=== PATIENT | female | born 1975 | race Caucasian/White ===

== ENCOUNTER → 2017-12-25 | Day surgery (SDC) | payer BC, OTHER ==
--- NOTE | 2017-12-27 11:20 | PATH ---
Surgical Pathology Report Patient Name: ISRAEL NIELSON [facility]. Rec. #: [id number] /Age/Gender: 1975 (Age: 42) / F Account: [id number] Location: [facility] Taken: 12/25/2017 Received: 12/25/2017 Reported: 12/26/2017 Physicians: Arlene Givens M.D. Specimen(s) Received LEFT BREAST CORE BIOPSY Clinical History Nonpalpable lesion Ultrasound findings: Probably benign, 0.82 cm Final Diagnosis AXILLARY TAIL/BREAST UPPER OUTER QUADRANT, LEFT, 1:00, 8-10 CMFN, ULTRASOUND GUIDED CORE BIOPSY: FIBROADENOMA. Comment: Findings discussed with Dr. Givens. Electronically Signed Neelam Colin M.D. Gross Description Received in formalin labeled "left 1:00 axilla, 8-10cmfn," are 5 orellana-yellow, cylindrical portions of fibroadipose tissue ranging from 1.0-1.5 cm in length and averaging 0.1 cm in diameter. The specimens are submitted in toto in one cassette. Total formalin fixation time: Approximately 8 hours DL/12/25/2017 saudi/12/25/2017
== END | disposition home or self-care (01) ==
LOC: JRADUS-SUR 12:19
PROVIDERS: ATTEND Physician Assistant
PROC: 0HBU3ZX Excision of Left Breast, Percutaneous Approach, Diagnostic (ICD-10-PCS; principal; 2017-12-25)
DX: D24.2 Benign neoplasm of left breast (principal)
CPT/HCPCS: 19083; 87899; 88305-TC; A4648

== ENCOUNTER 2020-03-30 04:38 | Inpatient (IN) | payer BC, OTHER ==
[2020-03-27 09:33] VITALS: BMI 25.8
[2020-03-30 09:22] LABS: PH,URINE 6.5 (5.0-8.0); URINE APPEARANCE CLEAR; URINE BILIRUBIN NEGATIVE (NEGATIVE); URINE COLOR YELLOW; URINE GLUCOSE (UA) NEGATIVE (NEGATIVE); URINE KETONE NEGATIVE (NEGATIVE); URINE LEUK ESTERASE NEGATIVE (NEGATIVE); URINE NITRITE NEGATIVE (NEGATIVE); URINE PROTEIN NEGATIVE (NEGATIVE)
[2020-03-30] MEDS ORDERED: SCOPOLAMINE HYDROBROMIDE 1 PATCH PATCH.TD72 ONE (09:53)
[2020-03-30] MEDS ORDERED: ROPIVACAINE HCL 0.5% 30ML VIAL ONE (09:54)
[2020-03-30] MEDS ORDERED: BACITRACIN 15 GM TUBE TOPICAL OINTMENT ONE (09:55)
[2020-03-30] MEDS ORDERED: MIDAZOLAM HCL 2 MG/2 ML SINGLE DOSE VIAL ONE ×3 (09:56→10:32)
[2020-03-30] MEDS ORDERED: ROCURONIUM BROMIDE 50 MG/5 ML SYRINGE ONE (10:31)
[2020-03-30] MEDS ORDERED: PROPOFOL 20 ML ONE (10:32)
--- NOTE | 2020-03-30 10:37 | HP ---
Satellite PMH - Chief Complaint Chief Complaint: Leiomyomatous uterus. Ovarian CYst History of Present Illness: 44 yo G 0 with leomyomatous uterus for myomectomy and with ovarian cyst for ovarian cystectomy History Source: Patient, Medical Record Limitations to Obtaining History: No Limitations - Past Medical History Allergies/Adverse Reactions: Allergies Allergy/AdvReac Type Severity Reaction Status Date / Time latex Allergy Intermediate Rash Verified 03/27/20 09:24 Sulfa (Sulfonamide Allergy Intermediate Itching Verified 03/27/20 09:24 Antibiotics) ...LMP: 03/18/20 ...: No ...: 0 - Current Medications Current Medications: Home Medications Medication Instructions Recorded Sertraline HCl [Zoloft] 75 mg PO DAILY 03/27/20 Satellite Physical Exam - Physical Examination Vital Signs: Vital Signs Period Temp Pulse Resp BP Sys/Huffman Pulse Ox Last 24 Hr 98.2 F 71 16 109/69 95 General Appearance: Well Nourished, Well Developed Lung: Clear to auscultation Heart: Regular rate & rhythm Breasts: Soft, Non-Tender Abdomen: Soft, No tenderness Extremities: No edema Pelvic Exam: Within normal limits External Genitalia, Within normal limits Vagina, Within normal limits Cervix, Within normal limits [place], Other Uterus (uterus 12 cm) Neurological: Intact, Alert, Oriented Satellite Impression/Plan - Impression/Plan Impression: leiomyomatous uterus. Ovarian Cyst Operative Procedure: Abdominal myomectomy. ovarian cystectomy Date to be Performed: 03/30/20
[2020-03-30] MEDS ORDERED: VASOPRESSIN 20 UNITS/ML VIAL IV ONE (10:40)
[2020-03-30] MEDS ORDERED: ceFAZolin SODIUM 1 GM VIAL IVPB ONE (11:10)
[2020-03-30] MEDS ORDERED: EPHEDRINE SULFATE/0.9% NACL/PF 50 MG/10 ML SYRINGE NR ONE (11:40)
[2020-03-30] MEDS ORDERED: NEOSTIGMINE METHYLSULFATE 0.5 MG/ML - 10 ML MDV ONE (12:23)
[2020-03-30] MEDS ORDERED: PHENYLEPHRINE HCL 10 MG/1 ML SINGLE DOSE VIAL ONE (12:23)
[2020-03-30] MEDS ORDERED: HYDROmorphone HCL CARPU-JECT 2 MG/1 ML DISP.SYRIN IVPUSH ONE (14:22)
[2020-03-30] MEDS ORDERED: SIMETHICONE 80 MG TAB.CHEW (FP) PO PRN (14:24)
[2020-03-30] MEDS ORDERED: oxyCODONE HCL 5 MG TABLET PO PRN ×2 (14:24)
[2020-03-30] MEDS ORDERED: BISACODYL 5 MG TABLET.DR (FP) PO PRN (14:24)
[2020-03-30] MEDS ORDERED: DOCUSATE SODIUM 100 MG CAPSULE (FP) PO PRN (14:24)
[2020-03-30] MEDS ORDERED: ONDANSETRON 4 MG/2 ML VIAL IVPUSH PRN ×2 (14:24→14:33)
[2020-03-30] MEDS ORDERED: HYDROmorphone HCl 2 MG/ML VIAL ONE (14:24)
[2020-03-30] MEDS ORDERED: LACTATED RINGERS SOLUTION 1,000 ML/1,000 ML INFUS.BAG IV SCH (14:30)
--- NOTE | 2020-03-30 14:30 | OP ---
Operative Note - Note: Operative Date: 03/30/20 Pre-Operative Diagnosis: fibroids/leiomyoma of the uterus Operation: abdominal myomectomy Surgeon: Paige Neumann Improvement Engineer: Manju Staples Anesthesiologist/VACUUM FILTER OPERATOR: Mehrdad Franco Anesthesia: General Specimens Removed: fibroids Estimated Blood Loss (mls): 100 Drains, Volume Out (mls): 100 (stewart) Fluid Volume Replaced (mls): 1,300 Operative Report Dictated: Yes
--- NOTE | 2020-03-30 14:32 | SURG ---
Surgery Bellmaker Note Bellmaker: Manju Staples PA-C Date of Service: 03/30/20 Diagnosis: fibroids/leiomyoma of the uterus Procedure: abdominal myomectomy I was present for the entirety of the operative procedure. For further detail, please refer to operative report. Visit type - Case Type Case Type: Scheduled - Emergency Emergency Visit: Yes Care time: The patient presented to the Emergency Department on the above date and was hospitalized for further evaluation of their emergent condition. - New patient This patient is new to me today: Yes Date on this admission: 03/30/20
[2020-03-30] MEDS ORDERED: ACETAMINOPHEN 1000 MG/100 ML VIAL (NON FORMULARY) IVPB ONE (14:33)
[2020-03-30] MEDS ORDERED: LACTATED RINGERS SOLUTION 1,000 ML IV SCH (14:45)
[2020-03-30] MEDS: IBUPROFEN 800 MG/8 ML IJ IVPB PRN (18:43)
[2020-03-30 19:02] LABS: HEMATOCRIT 37.1 % (32.4-45.2); HEMOGLOBIN 12.2 GM/dL (10.7-15.3); MCH 29.3 pg (25.7-33.7); MCHC 32.9 g/dl (32.0-36.0); MEAN CELL VOLUME 88.9 fl (80-96); MEAN PLT VOLUME 9.3 fl (7.5-11.1); PLATELET COUNT 262 K/MM3 (134-434); RBC 4.17 M/mm3 (3.60-5.2); RDW 13.2 % (11.6-15.6)
[2020-03-30 19:20] LABS: BLOOD UREA NITROGEN 9.5 mg/dL (7-18); CALCIUM 8.2 mg/dL (8.5-10.1); CREATININE 0.8 mg/dL (0.55-1.3); POTASSIUM 4.6 mmol/L (3.5-5.1)
[2020-03-30] MEDS: CEFAZOLIN 1 GM/D5W 1 GM/50 ML BAG IVPB SCH (20:02)
[2020-03-30] MEDS: ACETAMINOPHEN 1000 MG/100 ML VIAL (NON FORMULARY) IVPB SCH (21:00)
[2020-03-31] MEDS: ACETAMINOPHEN 1000 MG/100 ML VIAL (NON FORMULARY) IVPB SCH ×4 (00:56→15:15)
[2020-03-31] MEDS: CEFAZOLIN 1 GM/D5W 1 GM/50 ML BAG IVPB SCH ×2 (03:49→12:22)
--- NOTE | 2020-03-31 07:48 | PN ---
Progress Note (short form) - Note Progress Note: Surgery POD #1 open abdominal myomectomy. Patient seen and examined on AM rounds. Her pain is controlled and he is tolerating her diet and denies any fevers, CP, SOB, chills, N/V/D. She has not been OOB and her stewart is still in Vital Signs Temp 98.8 F 03/31/20 06:51 Pulse 68 03/31/20 06:51 Resp 20 03/31/20 06:51 BP 100/57 L 03/31/20 06:51 Pulse Ox 97 03/31/20 00:38 Intake & Output 03/30/20 03/30/20 03/31/20 11:59 23:59 11:59 Intake Total 7414 707 3428 Output Total 396 217 0220 Balance 1000 -200 -450 Intake: IV 1200 600 850 Lactated Ringers Solution 850 1,000 ml @ 75 mls/hr IV ASDIR JOHN Rx#:[id number] IVPB 300 Output: Urine 636 642 1348 Stewart 600 1600 Estimated Blood Loss 100 Other: Voiding Method Indwelling Catheter Indwelling Catheter Bowel Movement No CBC, BMP 03/31/20 07:40 03/31/20 07:40 PE: A&Ox3, NAD Unlabored resp on RA ABD: soft, NT, ND, incision c/d/i with steris intact and surrounding tissue intact with no tracking erythema, edema or evidence of collection or active d/c B/L compartments soft, supple and non-tender with +2 DP pulses Problem List - Problems (1) Status post myomectomy Assessment/Plan: POD #1 abdominal myomectomy doing well. -Advance diet as tolerated -d/c stewart -oob as tolerated -encourage IS -pain control -DVT prophylaxis -d/c planning for home tomorrow Evaluation and plan discussed with Dr Neumann Code(s): Z98.890 - OTHER SPECIFIED POSTPROCEDURAL STATES
[2020-03-31 08:01] LABS: HEMATOCRIT 32.6 % (32.4-45.2); HEMOGLOBIN 10.8 GM/dL (10.7-15.3); MCH 29.5 pg (25.7-33.7); MCHC 33.3 g/dl (32.0-36.0); MEAN CELL VOLUME 88.7 fl (80-96); MEAN PLT VOLUME 8.8 fl (7.5-11.1); PLATELET COUNT 230 K/MM3 (134-434); RBC 3.68 M/mm3 (3.60-5.2); RDW 13.1 % (11.6-15.6); WHITE BLOOD COUNT 9.4 K/mm3 (4.0-10.0)
[2020-03-31 08:31] LABS: BLOOD UREA NITROGEN 8.8 mg/dL (7-18); CREATININE 0.8 mg/dL (0.55-1.3)
[2020-03-31] MEDS: SERTRALINE HCL 25 MG TABLET (FP) PO SCH (09:25)
[2020-03-31] MEDS: ENOXAPARIN NA (PORCINE) 40 MG/0.4 ML DISP.SYRIN SQ SCH (09:25)
[2020-03-31] MEDS: IBUPROFEN 800 MG/8 ML IJ IVPB PRN ×2 (09:47→20:19)
[2020-04-01] MEDS: ACETAMINOPHEN 325 MG TABLET (FP) PO PRN ×2 (06:15→11:02)
--- NOTE | 2020-04-01 07:45 | DS ---
Physical Examination Vital Signs: Vital Signs Temperature 98.7 F 03/31/20 22:00 Pulse Rate 65 03/31/20 22:00 Respiratory Rate 18 03/31/20 22:00 Blood Pressure 108/53 L 03/31/20 22:00 O2 Sat by Pulse Oximetry (%) 96 03/31/20 22:00 Constitutional: Yes: No Distress Eyes: Yes: Conjunctiva Clear Neck: Yes: Supple, Trachea Midline Cardiovascular: Yes: Regular Rate and Rhythm Respiratory: Yes: Regular Gastrointestinal: Yes: Normal Bowel Sounds Musculoskeletal: Yes: WNL Extremities: Yes: WNL Wound/Incision: Yes: Well Approximated Neurological: Yes: Alert, Oriented ...Motor Strength: WNL Psychiatric: Yes: Alert, Oriented Labs: CBC, BMP 03/31/20 07:40 03/31/20 07:40 Discharge Summary Problems reviewed: Yes Reason For Visit: FIBROIDS/LEIOMYOMA OF UTERUS Current Active Problems Status post myomectomy (Acute) Procedures: Principal: Abdominal myomectomy Hospital Course: Routine post op care Health Concerns: None Plan of Treatment: Ambulation Analgesia as needed F/U with MD in 1 week Goals: Resume regular activities in 4 weeks Condition: Good - Instructions Diet, Activity, Other Instructions: Dr. Paige Neumann Sound Engineering Technician discharge instructions Physical activity Resume your normal everyday activity as tolerated no heavy lifting or exercise until seen by your surgeon. You may walk unlimited robbie of and climb stairs. You may resume driving the car when you feel safe and comfortable behind the wheel. No sexual activity as instructed by Dr. Neumann. Wound care If you have a bandage, leave it on, and keep dry for 48-72 hours. After that time discard the outer bandage. If they are tapes on the skin under the out of bandage leave them in place. They will peel off in the next 7 to 10 days. Do Not Peel them off. You may shower the day after surgery. If there are tapes present on the skin, you may shower over them. Diet There are no dietary restrictions. Eat healthy, high-fiber foods. Drink 6 to 8 glasses of liquid each day. This will assist in keeping your bowels are regular. Pain management You may take Tylenol or acetaminophen or Ibuprofen (for example, Motrin, Advil etc.) from my pain prescription medication is ordered should be taken as prescribed for moderate to severe pain. Call Dr. Neumann for any of the following: Severe pain not relieved by medication Fever of 101 or higher Excessive bleeding or drainage on dressing Inability to urinate ISTOP [id number] Call the office at [phone] for an appointment in seven days. Disposition: HOME - Home Medications Comprehensive Discharge Medication List: Ambulatory Orders Sertraline HCl [Zoloft] 75 mg PO DAILY 03/27/20
[2020-04-01 09:32] VITALS: BP 98/57; PULSE 59; TEMP 98.2
[2020-04-01] MEDS: ENOXAPARIN NA (PORCINE) 40 MG/0.4 ML DISP.SYRIN SQ SCH (11:02)
[2020-04-01] MEDS: SERTRALINE HCL 25 MG TABLET (FP) PO SCH (11:08)
--- NOTE | 2020-04-02 16:20 | PATH ---
Surgical Pathology Report Patient Name: ISRAEL NIELSON [facility]. Rec. #: [id number] /Age/Gender: 1975 (Age: 44) / F Account: [id number] Location: [facility] OBS/STEEL SASH ERECTOR Taken: 03/30/2020 Received: 03/30/2020 Reported: 04/02/2020 Physicians: Paige Neumann M.D. Specimen(s) Received A: UTERINE FIBROIDS B: LEFT CYSTECTOMY Clinical History Fibroids, leiomyoma of uterus Final Diagnosis A. uterine fibroidS, abdominal myomectomy: Leiomyomata (weight: 396 GRAMS). B. ovarian cyst, left, cystectomy: Hemorrhagic corpus luteum cyst. Electronically Signed Jessica Lugo M.D. Gross Description A. Received in formalin labeled "uterine fibroids," are 6 orellana, rubbery nodules ranging from 1.6-8.5 cm in greatest dimension weighing 396 grams. Sectioning reveals orellana, firm to rubbery parenchyma with whorled architecture. No areas of hemorrhage or necrosis are identified. File Keeper sections are submitted in 8 cassettes as follows: 1-3-smaller fibroids; 4-5-second largest fibroid; 6-8-largest fibroid. B. Received in formalin labeled "left cystectomy," is a 1.7 x 1.2 x 0.2 cm aggregate of orellana-brown tissue fragments, consistent with a disrupted hemorrhagic cyst. The specimens are submitted in toto in one cassette. /03/31/2020 saudi/03/31/2020
--- NOTE | 2020-04-08 16:22 | OP ---
DATE OF OPERATION: 03/30/2020 PREOPERATIVE DIAGNOSIS: Leiomyomatous uterus. OPERATION: Abdominal myomectomy. POSTOPERATIVE DIAGNOSIS: Leiomyomatous uterus. SURGEON: Faviola Neumann MD ALGEBRA TUTOR: CHARITO Coronado DESCRIPTION OF PROCEDURE: Patient was taken to the operating room, placed in supine position, prepped and draped in the usual sterile fashion. Timeout was performed in accordance with hospital regulation. Pfannenstiel skin incision was made with the scalpel. Cautery was then used to go through the layers of the abdominal wall to the level of the fascia. Fascia was cut in the midline, and cautery was then used to open the fascia in smiling fashion. Skyler was then used to bluntly and sharply dissect the rectus muscle and its fascia. Muscle was split in the midline. Peritoneal cavity was then entered and carried upward and downward. Uterus was then exteriorized. A leiomyomatous uterus was noted, approximately 12 weeks in size. A tourniquet was placed in the clear space of the broad ligament. Pitressin was infiltrated into multiple areas of the myoma. Multiple myomas were palpated, and cautery was then used to enter the serosa and myomas were enucleated out. Endometrial cavity was not entered. Anterior aspect of the uterus was also palpated and found to have myomas, and cautery was then used to make incision and myomas were then enucleated out. All incisions were closed in continuous locking stitch of 0 Vicryl suture, and then serosa of the uterus closed with 2-0 V-Loc suture. Hemostasis was then achieved. Interceed was then placed. Uterus was then interiorized, abdominal cavity cleaned with clean lap pads. Estimated blood loss about 100 mL. Abdominal sweep done. Peritoneal cavity closed in continuous 0 Vicryl suture. Fascia was then closed using 0 Vicryl suture, 2 parts. Skin was then closed using 3-0 Vicryl in subcuticular fashion. Wound was washed and dressed. Patient had tolerated the procedure well, was taken to recovery room in stable condition. FAVIOLA NEUMANN M.D. [id number]
== END 2020-04-01 11:30 | disposition home or self-care (01) | DRG 743 ==
LOC: JASUSAT 04:38 → EDSTATUS 10:30 → J2C 14:24 → J3W 15:46
PROVIDERS: ADMIT Obstetrics & Gynecology; ATTEND Obstetrics & Gynecology
PROC: 0UB10ZZ Excision of Left Ovary, Open Approach (ICD-10-PCS; 2020-03-30)
PROC: 0UB90ZZ Excision of Uterus, Open Approach (ICD-10-PCS; principal; 2020-03-30 10:00)
DX: D25.9 Leiomyoma of uterus, unspecified (principal); N83.12 Corpus luteum cyst of left ovary; Z88.2 Allergy status to sulfonamides; Z91.040 Latex allergy status
CPT/HCPCS: 36415; 80048; 81003; 84703; 85027; 86780; 86850; 86900; 86901; 88305-TC; 88307-TC; 94010; 94760; J0131

== ENCOUNTER 2021-01-28 04:40 | Day surgery (SDC) | payer BC, OTHER ==
[2021-01-27 13:10] VITALS: BMI 25.8
[2021-01-28] MEDS ORDERED: PROPOFOL 20 ML ONE ×2 (12:41→12:54)
[2021-01-28] MEDS ORDERED: MIDAZOLAM HCL 2 MG/2 ML SINGLE DOSE VIAL ONE (12:41)
[2021-01-28] MEDS ORDERED: DEXAMETHASONE SOD PHOSPHATE 4 MG/1 ML VIAL ONE (12:53)
[2021-01-28] MEDS ORDERED: KETOROLAC TROMETHAMINE 30 MG/1 ML VIAL ONE (12:53)
[2021-01-28] MEDS ORDERED: IBUPROFEN 400 MG TABLET (FP) PO PRN (13:07)
[2021-01-28] MEDS ORDERED: ACETAMINOPHEN 325 MG TABLET (FP) PO PRN (13:07)
[2021-01-28] MEDS ORDERED: ONDANSETRON 4 MG/2 ML VIAL IVPUSH PRN (14:09)
[2021-01-28] MEDS ORDERED: oxyCODONE HCL 5 MG TABLET PO PRN ×2 (14:09)
[2021-01-28] MEDS ORDERED: LACTATED RINGERS SOLUTION 1,000 ML IV SCH (14:15)
[2021-01-28 16:59] VITALS: BP 124/73; PULSE 64; TEMP 97.5
== END 2021-01-28 17:20 | disposition home or self-care (01) ==
LOC: JASU-SURG 04:40
PROVIDERS: ATTEND Obstetrics & Gynecology
PROC: 0UB98ZZ Excision of Uterus, Via Natural or Artificial Opening Endoscopic (ICD-10-PCS; principal; 2021-01-28 11:00)
PROC: 0UDB8ZX Extraction of Endometrium, Via Natural or Artificial Opening Endoscopic, Diagnostic (ICD-10-PCS; 2021-01-28 11:00)
DX: N84.0 Polyp of corpus uteri (principal); D25.0 Submucous leiomyoma of uterus; N92.0 Excessive and frequent menstruation with regular cycle
CPT/HCPCS: 81025; 88305-TC; 94760